=== PATIENT | male | born 1945 | race Caucasian/White ===

== ENCOUNTER 2022-04-21 10:19 | Inpatient (IN) | payer MEDICARE, OTHER ==
[~2022-04-21] VITALS: Ht 177.8 cm; Wt 72.7 kg
[2022-04-21] VITALS (10 sets, daily range): BP systolic 98–131; BP diastolic 53–64
[2022-04-21 10:40] LABS: BASOPHILS # (AUTO) 0.1 10^3/uL (0.0-0.1); BASOPHILS % (AUTO) 1 % (0-10); EOSINOPHILS # (AUTO) 0.3 10^3/uL (0.0-0.3); EOSINOPHILS % (AUTO) 2 % (0-10); LYMPHOCYTES # (AUTO) 2.1 10^3/uL (1.0-4.0); LYMPHOCYTES % (AUTO) 15 % (12-44); MEAN CORPUSCULAR HEMOGLOBIN 23 pg (25-34); MEAN CORPUSCULAR HGB CONC 30 g/dL (32-36); MEAN CORPUSCULAR VOLUME 75 fL (80-99); MEAN PLATELET VOLUME 9.1 fL (9.0-12.2); MONOCYTES % (AUTO) 7 % (0-12); NEUTROPHILS # (AUTO) 10.7 10^3/uL (1.8-7.8); NEUTROPHILS % (AUTO) 75 % (42-75); PLATELET COUNT 644 10^3/uL (130-400); WHITE BLOOD COUNT 14.3 10^3/uL (4.3-11.0)
[2022-04-21 10:43] LABS: HEMATOCRIT 16 % (40-54); HEMOGLOBIN 4.7 g/dL (13.3-17.7)
--- NOTE | 2022-04-21 10:54 | ED General ---
General Chief Complaint: Respiratory Problems Stated Complaint: HEMOGLOBIN LOW Source of Information: Patient History of Present Illness Date Seen by Provider: Apr 21, 2022 Time Seen by Provider: 10:29 Initial Comments 76-year-old male presenting with complaints of feeling short of breath and easily winded over the last few weeks. He had gone through urgent care yesterday and they had drawn blood, done EKG and chest x-ray. He reports that everything had looked fine yesterday however today when they got blood work back then they called him and said that his hemoglobin was down to 4.7 and he needed to go to the hospital for transfusion. He came here to the emergency department to have labs rechecked and see about getting blood. He was advised that we do not have blood products here for transfusion in a situation like this. He would need to have labs rechecked and if it is truly low at 4.7 then we would want to try and get him transferred to the hospital for transfusion. He is hemo dynamically stable alert and active. He states that he initially thought he had a fever or upper respiratory infection and that proceeded to go into several weeks of being short of breath. He denies any chest pain, abdominal pain, nausea, vomiting, blood in stools, blood in urine, dark tarry stool, coughing up any blood. He denies taking any blood thinners or prescription medicines. He states he has not really seen a doctor since he was a child. He has been healthy and denies any known medical issues. Timing/Duration: Getting Worse (Over the last few weeks becoming more short of breath, especially with exertion) Severity: Moderate Modifying Factors: worse with Movement (Exertion makes him feel more short of breath) Associated Systoms: No Chest Pain; Cough; No Diaphoresis, No Fever/Chills, No Headaches, No Loss of Appetite, No Malaise, No Nausea/Vomiting, No Rash, No Seizure; Shortness of Air; No Syncope, No Weakness Allergies and Home Medications Allergies Coded Allergies: latex (Verified Allergy, Unknown, 04/21/22) Patient Home Medication List Home Medication List Reviewed: Yes Review of Systems Review of Systems Constitutional: No chills, No fever, No malaise EENTM: no symptoms reported Respiratory: cough (intermittent), dyspnea on exertion, short of breath; No stridor, No wheezing Cardiovascular: No chest pain, No edema Gastrointestinal: No abdominal pain, No diarrhea, No hematemesis, No heartburn, No melena, No nausea, No vomiting Genitourinary: no symptoms reported Musculoskeletal: no symptoms reported Skin: No rash Psychiatric/Neurological: Denies Headache Hematologic/Lymphatic: Denies Blood Clots, Denies Easy Bleeding, Denies Easy Bruising Past Ncxozxy-Rcvtsv-Jgjrnz Hx Patient Social History Tobacco Use?: No Smoking Status: Never a Smoker Smokeless Tobacco Frequency: Never a User Use of E-Cig and/or Vaping dev: No Use of E-Cig and/or Vaping Nadir: Never a User Substance use?: No Alcohol Use?: No Pt feels they are or have been: No Immunizations Up To Date COVID19 Vaccine Head Lineman: MODERNA Physical Exam Vital Signs Vital Signs - First Documented 04/21/22 04/21/22 10:28 11:35 Temp 36.0 Pulse 104 Resp 17 B/P (MAP) 134/51 (78) Pulse Ox 100 O2 Delivery Room Air Capillary Refill : Height, Weight, BMI Height: '" Weight: lbs. oz. kg; BMI Method: General Appearance: No Apparent Distress, WD/WN HEENT: PERRL/EOMI, Pharynx Normal Neck: Full Range of Motion, Normal Inspection, Non Tender, Supple Respiratory: Chest Non Tender, Lungs Clear, Normal Breath Sounds, No Accessory Muscle Use, No Respiratory Distress Cardiovascular: Regular Rate, Rhythm, Normal Peripheral Pulses Gastrointestinal: Normal Bowel Sounds, No Pulsatile Mass, Non Tender Rectal: Normal Rectal Tone, Heme Negative Stool Extremity: Normal Capillary Refill, Normal Inspection, No Pedal Edema Neurologic/Psychiatric: Alert, Oriented x3, scrap burner II-XII Norm as Tested Skin: Warm/Dry, Pallor Focused Exam Lactate Level 04/21/22 10:40: Lactic Acid Level 1.84 Lactic Acid Level Laboratory Tests Test 04/21/22 10:40 Lactic Acid Level 1.84 MMOL/L (0.50-2.00) Progress/Results/Core Measures Suspected Sepsis SIRS Temperature: Pulse: Respiratory Rate: Laboratory Tests 04/21/22 10:36: White Blood Count 14.3H Blood Pressure / Mean: 04/21/22 10:40: Lactic Acid Level 1.84 Laboratory Tests 04/21/22 10:36: Creatinine 1.27, INR Comment 1.0, Platelet Count 644H, Total Bilirubin 0.3 Results/Orders Lab Results Laboratory Tests Test 04/21/22 10:36 04/21/22 10:40 Range/Units White Blood Count 14.3 H 4.3-11.0 10^3/uL Red Blood Count 2.07 L 4.30-5.52 10^6/uL Hemoglobin 4.7 *L 13.3-17.7 g/dL Hematocrit 16 *L 40-54 % Mean Corpuscular Volume 75 L 80-99 fL Mean Corpuscular Hemoglobin 23 L 25-34 pg Mean Corpuscular Hemoglobin Concent 30 L 32-36 g/dL Red Cell Distribution Width 16.5 H 10.0-14.5 % Platelet Count 644 H 130-400 10^3/uL Mean Platelet Volume 9.1 9.0-12.2 fL Immature Granulocyte % (Auto) 1 % Neutrophils (%) (Auto) 75 42-75 % Lymphocytes (%) (Auto) 15 12-44 % Monocytes (%) (Auto) 7 0-12 % Eosinophils (%) (Auto) 2 0-10 % Basophils (%) (Auto) 1 0-10 % Neutrophils # (Auto) 10.7 H 1.8-7.8 10^3/uL Lymphocytes # (Auto) 2.1 1.0-4.0 10^3/uL Monocytes # (Auto) 1.0 0.0-1.0 10^3/uL Eosinophils # (Auto) 0.3 0.0-0.3 10^3/uL Basophils # (Auto) 0.1 0.0-0.1 10^3/uL Immature Granulocyte # (Auto) 0.1 0.0-0.1 10^3/uL Neutrophils % (Manual) 86 % Lymphocytes % (Manual) 11 % Monocytes % (Manual) 2 % Eosinophils % (Manual) 1 % Platelet Estimate INCREASED Hypochromasia MODERATE Target Cells MODERATE Tear Drop Cells SLIGHT Elliptocytes SLIGHT Prothrombin Time 13.9 12.2-14.7 SEC INR Comment 1.0 0.8-1.4 Activated Partial Thromboplast Time 27 24-35 SEC Sodium Level 135 135-145 MMOL/L Potassium Level 4.2 3.6-5.0 MMOL/L Chloride Level 103 98-107 MMOL/L Carbon Dioxide Level 20 L 21-32 MMOL/L Anion Gap 12 5-14 MMOL/L Blood Urea Nitrogen 15 7-18 MG/DL Creatinine 1.27 0.60-1.30 MG/DL Estimat Glomerular Filtration Rate 58 BUN/Creatinine Ratio 12 Glucose Level 155 H 70-105 MG/DL Calcium Level 8.5 8.5-10.1 MG/DL Corrected Calcium 9.1 8.5-10.1 MG/DL Total Bilirubin 0.3 0.1-1.0 MG/DL Aspartate Amino Transf (AST/SGOT) 8 5-34 U/L Alanine Aminotransferase (ALT/SGPT) < 5 0-55 U/L Alkaline Phosphatase 97 40-136 U/L Total Protein 6.5 6.4-8.2 GM/DL Albumin 3.3 3.2-4.5 GM/DL Lactic Acid Level 1.84 0.50-2.00 MMOL/L My Orders Orders - SAM LÓPEZ MD Fecal Occult Bedside (04/21/22 10:28) Cbc With Automated Diff (04/21/22 10:28) Protime With Inr (04/21/22 10:28) Partial Thromboplastin Time (04/21/22 10:28) Manual Differential (04/21/22 10:36) Comprehensive Metabolic Panel (04/21/22 10:48) Ed Iv/Invasive Line Start (04/21/22 10:48) Blood Culture (04/21/22 10:54) Lactic Acid Analyzer (04/21/22 10:54) Ed Admission (Communication) (04/21/22 11:10) Vital Signs/I&O 04/21/22 04/21/22 04/21/22 10:28 10:28 11:35 Temp 36.0 36.2 Pulse 104 80 Resp 17 15 B/P (MAP) 134/51 (78) 131/61 Pulse Ox 100 O2 Delivery Room Air Room Air Room Air Capillary Refill : Progress Note #1: Progress Note Order recheck on labs to see if he truly is anemic and what the value is, in case the low Hgb was lab error. While I was still talking to the patient lab came back with his CBC showing Hgb 4.7. I advised him with his anemia we would want to transfer him to a hospital for transfusion. His hemoccult exam was negative for blood. Differential diagnosis postviral anemia, GI blood loss, cancer 1046 D/w Dr. Pritchett as patient is unassigned and does not have a PCP. She was willing to accept him as a patient and have him admitted but she did request that we see what his Chemistry shows for his BUN and T Bili to help evaluate if this might be a hemolytic anemia. If so she would want to check with Heme/Onc before taking him to [place]. If it looked ok and did not seem to be indicating Hemolytic anemia will observation admit him for transfusion and he would need additional work up as outpt for cause of his anemia. Also added blood cultures and lactic acid since his CBC shows elevated WBC count of 14.3. Progress Note #2: Time: 11:09 Progress Note Chemistry and Coags are stable without acute significant abnormality to account for his anemia. D/w Dr. Pritchett again and she accepted him for observation admit to have transfusion. She will place queued orders for admit. Departure Communication (Admissions) Time/Spoke to Admitting Phy: 11:09 d/w Dr. Pritchett for Hospitalist and she accepted pt for admit. Impression Primary Impression: Anemia Qualified Codes: D64.9 - Anemia, unspecified Additional Impression: Dyspnea on exertion Disposition: 30 STILL A PATIENT Condition: Stable Admissions Decision to Admit Reason: Admit from ER (General) Decision to Admit/Date: Apr 21, 2022 Time/Decision to Admit Time: 11:09 SAM LÓPEZ MD Apr 21, 2022 10:54
[2022-04-21 10:55] LABS: PROTHROMBIN TIME PATIENT 13.9 SEC (12.2-14.7)
[2022-04-21 11:05] LABS: CARBON DIOXIDE 20 MMOL/L (21-32); CHLORIDE 103 MMOL/L (98-107); POTASSIUM 4.2 MMOL/L (3.6-5.0); SODIUM 135 MMOL/L (135-145)
[2022-04-21 11:06] LABS: ALANINE AMINOTRANSFERASE < 5 U/L (0-55); ALBUMIN 3.3 GM/DL (3.2-4.5); ALKALINE PHOSPHATASE 97 U/L (40-136); BILIRUBIN,TOTAL 0.3 MG/DL (0.1-1.0); BUN/CREATININE RATIO 12; CALCIUM 8.5 MG/DL (8.5-10.1); CREATININE SERUM 1.27 MG/DL (0.60-1.30); GFR ESTIMATED 58; GLUCOSE 155 MG/DL (70-105); TOTAL PROTEIN 6.5 GM/DL (6.4-8.2)
[2022-04-21 11:20] LABS: EOSINOPHILS % (MANUAL) 1 %; HYPOCHROMASIA MODERATE; LYMPHOCYTES % (MANUAL) 11 %; MONOCYTES % (MANUAL) 2 %; NEUTROPHILS % (MANUAL) 86 %; PLATELET ESTIMATE INCREASED; TARGET CELLS MODERATE; TEAR DROP CELLS SLIGHT
[2022-04-21 11:21] LABS: ELLIPT/OVALOCYTES SLIGHT
--- NOTE | 2022-04-21 12:43 | History & Physical-Hospitalist ---
History of Present Illness HPI/Chief Complaint Patient is a 76-year-old male who presented to the emergency department due to dyspnea on exertion. He states that his symptoms started roughly 1 month ago when he thought that he had an upper respiratory tract infection. When they continued he decided to seek evaluation at an urgent care yesterday. They mona labs as an outpatient and called him today because his hemoglobin was 4.7 and advised him to seek care in the emergency department. He presented to the [facility] ER where hemoglobin was rechecked and remained 4.7. He denies any dark or black stools. 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 reports that he has lost 30lbs semi-intentionally in the past 2-3 months (patient thinks 6-8 months, both agree to maybe 4 months timeframe). Patient is conversationally dyspneic and family reports that is new recently and abnormal for him. Source: patient Exam Limitations: no limitations Date Seen 04/21/22 Time Seen by a Provider: 13:00 Attending Physician No,Local Physician PCP Admitting Physician: Alexandra Breen MD Attending Physician: Alexandra Breen MD Referring Physician Date of Admission Apr 21, 2022 at 12:24 Home Medications & Allergies Home Medications Reviewed patient Home Medication Reconciliation performed by pharmacy medication reconciliations renal dialysis technician and/or nursing. Patients Allergies have been reviewed. Allergies Allergies Coded Allergies latex (Verified Allergy, Unknown, 04/21/22) Past Knwnylm-Ugeqzl-Sngagk Hx Patient Social History Tobacco Use?: No Smoking Status: Former Smoker (quit at 59yo) Smokeless Tobacco Frequency: Never a User Use of E-Cig and/or Vaping dev: No Use of E-Cig and/or Vaping Nadir: Never a User Substance use?: No Alcohol Use?: No Pt feels they are or have been: No Current Status Advance Directives: No Communicates: Verbally Primary Language: Romanian Preferred Spoken Language: Romanian Is interpretation needed?: No Sensory deficits: Vision impairment Implanted or Applied Medical D: None Family Medical History Reviewed Nursing Family Hx No Pertinent Family Hx Review of Systems Constitutional: No chills, No fever; malaise, weight loss EENTM: no symptoms reported Respiratory: No cough; dyspnea on exertion; No hemoptysis, No orthopnea, No phlegm; short of breath Cardiovascular: No chest pain, No edema, No Hx of Intervention, No palpitations Gastrointestinal: No abdominal pain, No constipation, No diarrhea, No nausea, No vomiting Genitourinary: no symptoms reported Musculoskeletal: no symptoms reported Skin: no symptoms reported Psychiatric/Neurological: No Symptoms Reported Physical Exam Physical Exam Vital Signs Vital Signs - First Documented 04/21/22 04/21/22 04/21/22 10:28 11:35 20:00 Temp 36.0 Pulse 104 Resp 17 B/P (MAP) 134/51 (78) Pulse Ox 100 O2 Delivery Room Air O2 Flow Rate 98.00 Capillary Refill : Less Than 3 Seconds Height, Weight, BMI Height: '" Weight: lbs. oz. kg; 24.00 BMI Method: General Appearance: No Apparent Distress, WD/WN, Thin HEENT: PERRL/EOMI, Moist Mucous Membranes; No Scleral Icterus (L), No Scleral Icterus (R) Neck: Normal Inspection, Supple Respiratory: Lungs Clear, No Accessory Muscle Use, No Respiratory Distress Cardiovascular: Regular Rate, Rhythm, No JVD, No Murmur Gastrointestinal: Normal Bowel Sounds, Non Tender, Soft Extremity: No Calf Tenderness, Swelling (trace ankle edema bilaterally) Neurologic/Psychiatric: Alert, Oriented x3, Normal Mood/Affect Skin: Normal Color, Warm/Dry Results Results/Procedures Labs Laboratory Tests 04/21/22 10:36 04/21/22 21:25 04/22/22 05:41 Patient resulted labs reviewed. Assessment/Plan Admission Diagnosis Severe Anemia Admission Status: Observation Assessment and Plan Severe Anemia Weight loss Former tobacco abuse Presumed GI bleed No evidence of hemolysis on labs Surgery consulted, appreciate recs Discussed with Dr Murray will likely need EGD and colonoscopy FOBT negative Check iron panel PPI Down 30 lbs in roughly 4 months- informed family this is concerning for occult neoplasm DVT ppx: SCDs only Diagnosis/Problems Diagnosis/Problems (1) Dyspnea on exertion Status: Acute (2) Anemia Status: Acute Qualifiers: Anemia type: unspecified type Qualified Codes: D64.9 - Anemia, unspecified ALEXANDRA BREEN MD Apr 21, 2022 12:43
[2022-04-21] MEDS ORDERED: ACETAMINOPHEN 325 MG TABLET PO PRN (13:00)
[2022-04-21] MEDS ORDERED: ONDANSETRON 4 MG/2 ML (SDV) Z0FRAN IV PRN (13:00)
[2022-04-21] MEDS ORDERED: diphenhydrAMINE 50 MG/ML INJ (BENADRYL) IVP PRN (13:00)
[2022-04-21] MEDS ORDERED: ANTACID SUSP 30 ML UDC (MYLANTA) PO PRN (13:00)
[2022-04-21] MEDS ORDERED: MELATONIN 3 MG TABLET PO PRN (13:00)
[2022-04-21] MEDS ORDERED: NS IV 500 ML 500 ML IV SCH ×3 (13:00→22:15)
[2022-04-21] MEDS: NS IV 1000 ML 1,000 ML IV SCH ×2 (13:08→20:28)
[2022-04-21] MEDS ORDERED: RT-ALBUTEROL/IPRATROPIUM 3 ML (DUONEB) VIAL INH PRN (13:30)
[2022-04-21] MEDS: inSUlin ASPART (NovoLOG) 1 UNIT/0.01 ML (CHARGE PER UNIT) SC SCH ×2 (15:44→20:28)
--- NOTE | 2022-04-21 16:05 | CONSULTATION REPORT ---
DATE OF SERVICE: HISTORY OF PRESENT ILLNESS: The patient is a 76-year-old male, who presented to the Emergency Department with increasing shortness of breath; however, also at rest. In the ER, his blood was drawn as well as an EKG and chest x-ray. Blood work did reveal a 4.7. The patient is awake and alert most likely indicating a chronic process compensation. He states he has not seen a physician in many years. He does not report any nausea or vomiting as well as no coffee ground emesis nor any dark urine. He also does not report any hematuria. He states that his bowel movements have been normal for him. He does not report any red blood per rectum nor any dark tarry stools. Upon further questioning, he does report that he may have some loose stools on occasion. PAST MEDICAL HISTORY: none known. PAST SURGICAL HISTORY: None known. ALLERGIES: LATEX. SOCIAL HISTORY: Negative smoke. REVIEW OF SYSTEMS: Denies experiencing any shortness of breath or difficulty breathing. No diaphoresis. He states that he does have exertional shortness of breath with mild episodes of symptoms. No hematemesis. He also does report occasional episodes of constipation, no red blood per rectum, no dark tarry stools. No fever, chills, no recent inadvertent weight loss. Rest of the review of systems negative. PHYSICAL EXAMINATION: VITAL SIGNS: Temperature 98.7, pulse 79, respirations 16, and pulse ox 100% on room air. Physical exam will be ascertained when the patient will be seen in the a.m. The patients history was accrued by the admitting physician and the patients electronic medical records. LABORATORY DATA: Hemoglobin 4.7, hematocrit 14, platelets 644, BUN 15, and creatinine 1.27. Liver function enzymes are normal. ASSESSMENT AND PLAN: A 76-year-old male with severe anemia. Somewhere along the line, he does have a slow chronic blood loss, which again may encompass the upper or lower gastrointestinal tract and because he has not had a colonoscopy as well as the significant anemia, we will schedule him for an EGD and colonoscopy on this admission. We will allow him to eat and proceed with PPI acid reduction and continue with resuscitation with blood products, as well as monitor his stability and vital signs. Job ID: [id number] DocumentID: [id number] Dictated Date: 04/21/2022 15:15:20 Test Design Engineer Date: 04/21/2022 15:52:15 Dictated By: ADELA ESQUIVEL MD MTDD
[2022-04-21] MEDS: RT-ALBUTEROL/IPRATROPIUM 3 ML (DUONEB) VIAL INH SCH (20:35)
[2022-04-21] MEDS: PANTOPRAZOLE 40 MG (PROTONIX) VIAL IV SCH (21:08)
[2022-04-21 21:37] LABS: HEMOGLOBIN 6.3 g/dL (13.3-17.7)
[2022-04-22] VITALS (7 sets, daily range): BP systolic 88–115; BP diastolic 53–63
[2022-04-22] MEDS: NS IV 1000 ML 1,000 ML IV SCH ×3 (05:00→20:45)
[2022-04-22 05:47] LABS: HEMATOCRIT 23 % (40-54); HEMOGLOBIN 7.3 g/dL (13.3-17.7); MEAN CORPUSCULAR HEMOGLOBIN 25 pg (25-34); MEAN CORPUSCULAR HGB CONC 32 g/dL (32-36); MEAN CORPUSCULAR VOLUME 80 fL (80-99); MEAN PLATELET VOLUME 9.3 fL (9.0-12.2); PLATELET COUNT 455 10^3/uL (130-400); WHITE BLOOD COUNT 12.8 10^3/uL (4.3-11.0)
[2022-04-22 06:07] LABS: CALCIUM 7.8 MG/DL (8.5-10.1); CREATININE SERUM 1.07 MG/DL (0.60-1.30); POTASSIUM 4.4 MMOL/L (3.6-5.0)
[2022-04-22] MEDS: inSUlin ASPART (NovoLOG) 1 UNIT/0.01 ML (CHARGE PER UNIT) SC SCH ×4 (06:38→20:39)
[2022-04-22] MEDS: RT-ALBUTEROL/IPRATROPIUM 3 ML (DUONEB) VIAL INH SCH ×2 (07:41→21:30)
--- NOTE | 2022-04-22 09:40 | Progress Note ---
Standard Progress Note Progress Notes/Assess & Plan Date Seen by a Provider: Apr 22, 2022 Time Seen by a Provider: 09:30 Progress/Assessment & Plan PE: chest-few scattered rhales heart-regular HEENT-no scleral icterus, no cervical adenopathy ext-no LE edema, neg homans abd-soft, NT/ND skin-warm,dry Focused Exam Lactate Level 04/21/22 10:40: Lactic Acid Level 1.84 ADELA ESQUIVEL MD Apr 22, 2022 09:40
--- NOTE | 2022-04-22 09:40 | Progress Note ---
Subjective Date Seen by a Provider: Apr 22, 2022 Time Seen by a Provider: 09:20 Subjective/Events-last exam Patient seen with Dr. Murray. Patient reports feeling better today. Denies any N/V or abdominal pain. Reports that he had been having increased heartburn at home but denies any here. Reports that he has never had an EGD or colonoscopy before. Denies any blood in his stool or dark, tarry stools. Focused Exam Lactate Level 04/21/22 10:40: Lactic Acid Level 1.84 Objective Exam Vital Signs Date Time Temp Pulse Resp B/P (MAP) Pulse Ox O2 Delivery O2 Flow Rate FiO2 04/22/22 07:41 96 Room Air 0.00 04/22/22 07:25 37.5 78 20 115/58 (77) 98 Room Air 04/22/22 07:00 70 04/22/22 04:34 37.7 69 18 106/61 (76) 99 Room Air 04/22/22 02:35 37.1 71 16 109/59 97 Room Air 04/22/22 00:39 70 04/22/22 00:05 37.4 76 18 98/54 (69) 98 Room Air 04/21/22 23:47 37.4 78 15 98/54 98 Room Air 04/21/22 20:36 95 Room Air 04/21/22 20:00 Room Air 98.00 04/21/22 19:47 37.4 84 18 127/60 (82) 100 Room Air 04/21/22 19:32 37.4 84 18 127/60 100 Room Air 04/21/22 19:00 75 04/21/22 16:47 37.8 75 16 111/57 99 Room Air 04/21/22 16:43 36.7 78 20 103/64 (77) 98 Room Air 04/21/22 16:25 37.8 75 16 111/57 99 Room Air 04/21/22 14:32 37.6 79 16 111/53 100 Room Air 04/21/22 14:17 37.2 85 16 117/55 100 Room Air 04/21/22 14:00 37.3 80 20 118/61 (80) 100 Room Air 04/21/22 13:13 36.2 80 100 04/21/22 13:00 Room Air 04/21/22 11:35 36.2 80 15 131/61 100 Room Air 04/21/22 10:28 36.0 104 17 134/51 (78) Room Air 04/21/22 10:28 Room Air I & O 04/22/22 07:00 Intake Total 1166 ml Balance 1166 ml Capillary Refill : Less Than 3 Seconds General Appearance: No Apparent Distress, WD/WN Neck: Normal Inspection, Supple Respiratory: No Accessory Muscle Use, No Respiratory Distress Gastrointestinal: normal bowel sounds, non tender, soft Extremity: Normal Inspection, Normal Range of Motion Neurologic/Psychiatric: Alert, Oriented x3 Skin: Normal Color, Warm/Dry Results Lab Laboratory Tests 04/21/22 10:36: White Blood Count 14.3H, Red Blood Count 2.07L, Hemoglobin 4.7*L, Hematocrit 16*L, Mean Corpuscular Volume 75L, Mean Corpuscular Hemoglobin 23L, Mean Corpuscular Hemoglobin Concent 30L, Red Cell Distribution Width 16.5H, Platelet Count 644H, Mean Platelet Volume 9.1, Immature Granulocyte % (Auto) 1, Neutrophils (%) (Auto) 75, Lymphocytes (%) (Auto) 15, Monocytes (%) (Auto) 7, Eosinophils (%) (Auto) 2, Basophils (%) (Auto) 1, Neutrophils # (Auto) 10.7H, Lymphocytes # (Auto) 2.1, Monocytes # (Auto) 1.0, Eosinophils # (Auto) 0.3, Basophils # (Auto) 0.1, Immature Granulocyte # (Auto) 0.1, Neutrophils % (Manual) 86, Lymphocytes % (Manual) 11, Monocytes % (Manual) 2, Eosinophils % (Manual) 1, Platelet Estimate INCREASED, Hypochromasia MODERATE, Target Cells MODERATE, Tear Drop Cells SLIGHT, Elliptocytes SLIGHT, Prothrombin Time 13.9, INR Comment 1.0, Activated Partial Thromboplast Time 27, Sodium Level 135, Potassium Level 4.2, Chloride Level 103, Carbon Dioxide Level 20L, Anion Gap 12, Blood Urea Nitrogen 15, Creatinine 1.27, Estimat Glomerular Filtration Rate 58, BUN/Creatinine Ratio 12, Glucose Level 155H, Calcium Level 8.5, Corrected Calcium 9.1, Total Bilirubin 0.3, Aspartate Amino Transf (AST/SGOT) 8, Alanine Aminotransferase (ALT/SGPT) < 5, Alkaline Phosphatase 97, Total Protein 6.5, Albumin 3.3 10/8/22 10:40: Lactic Acid Level 1.84 04/21/22 13:08: Iron Level 13L, Total Iron Binding Capacity 335H, Unsaturated Iron Binding Capacity 322, Transferrin % Saturation 4L, Ferritin 11.0L 04/21/22 15:37: Glucometer 99 04/21/22 20:24: Glucometer 115H 04/21/22 21:25: Hemoglobin 6.3#*L, Hematocrit 20*L 04/22/22 05:35: Glucometer 94 04/22/22 05:41: Hemoglobin 7.3L, Hematocrit 23L, White Blood Count 12.8H, Red Blood Count 2.91L, Mean Corpuscular Volume 80, Mean Corpuscular Hemoglobin 25, Mean Corpuscular Hemoglobin Concent 32, Red Cell Distribution Width 17.1H, Platelet Count 455H, Mean Platelet Volume 9.3, Sodium Level 136, Potassium Level 4.4, Chloride Level 110H, Carbon Dioxide Level 17L, Anion Gap 9, Blood Urea Nitrogen 11, Creatinine 1.07, Estimat Glomerular Filtration Rate 71, BUN/Creatinine Ratio 10, Glucose Level 98, Calcium Level 7.8L Assessment/Plan Assessment/Plan Assess & Plan/Chief Complaint A 76 year old male with severe anemia VSS WBC 12.8 Hgb 7.3 Continue with PUD prophylaxis Transfuse PRBCs per protocol Will proceed with colonic prep tomorrow Schedule for EGD and colonoscopy for Saturday MABEL ESTRADA APRN Apr 22, 2022 09:40
[2022-04-22] MEDS: PANTOPRAZOLE 40 MG (PROTONIX) VIAL IV SCH ×2 (09:43→20:45)
--- NOTE | 2022-04-22 11:22 | Progress Note - Hospitalist ---
Subjective HPI/CC On Admission Date Seen by Provider: Apr 22, 2022 Patient is a 76-year-old male who presented to the emergency department due to dyspnea on exertion. He states that his symptoms started roughly 1 month ago when he thought that he had an upper respiratory tract infection. When they continued he decided to seek evaluation at an urgent care yesterday. They mona labs as an outpatient and called him today because his hemoglobin was 4.7 and advised him to seek care in the emergency department. He presented to the [place] ER where hemoglobin was rechecked and remained 4.7. He denies any dark or black stools. He has not seen a doctor since he was a child. reports that he has lost 30lbs semi-intentionally in the past 2-3 months (patient thinks 6-8 months, both agree to maybe 4 months timeframe). Patient is conversationally dyspneic and family reports that is new recently and abnormal for him. Subjective/Events-last exam Pt reports feeling much better today. No complaints. Breathing improved. Discussed lab results and need for iron transfusion. Focused Exam Lactate Level 04/21/22 10:40: Lactic Acid Level 1.84 Objective Exam Vital Signs Vital Signs Date Time Temp Pulse Resp B/P (MAP) Pulse Ox O2 Delivery O2 Flow Rate FiO2 04/22/22 08:00 Room Air 04/22/22 07:41 96 0.00 04/22/22 07:25 37.5 78 20 115/58 (77) Capillary Refill : Less Than 3 Seconds General Appearance: No Apparent Distress, WD/WN Respiratory: Lungs Clear, No Respiratory Distress Cardiovascular: Regular Rate, Rhythm, No Murmur Gastrointestinal: Normal Bowel Sounds, Non Tender, Soft Neurologic/Psychiatric: Alert, Oriented x3 Skin: Normal Color, Warm/Dry Results/Procedures Lab Laboratory Tests 04/21/22 21:25 04/22/22 05:41 Patient resulted labs reviewed. Assessment/Plan Assessment and Plan Assess & Plan/Chief Complaint Severe Anemia Weight loss Former tobacco abuse Presumed GI bleed Hgb up frfom 4.7 to 7.3 after 3 units pRBCs Surgery consulted, appreciate recs Discussed with Dr Murray will likely need EGD and colonoscopy FOBT negative Iron low- will replace with venofer PPI Down 30 lbs in roughly 4 months- informed family this is concerning for occult neoplasm DVT ppx: SCDs only Diagnosis/Problems Diagnosis/Problems (1) Dyspnea on exertion Status: Acute (2) Anemia Status: Acute Qualifiers: Anemia type: unspecified type Qualified Codes: D64.9 - Anemia, unspecified DIANNE BREEN MD Apr 22, 2022 11:22
[2022-04-22] MEDS ORDERED: EPINEPHrine INJECTION 1 MG/ML AMP IM PRN (11:30)
[2022-04-22] MEDS ORDERED: diphenhydrAMINE 50 MG/ML INJ (BENADRYL) IV PRN (11:30)
[2022-04-22] MEDS ORDERED: RT-ALBUTEROL SULF 2.5 MG/3 ML PRE-MIX VIAL IH PRN (11:30)
[2022-04-22] MEDS ORDERED: HYDROCORTISONE 100 MG/2 ML (Solu-CORTEF) VIAL IV PRN (11:30)
[2022-04-23 00:06] VITALS: BP 106/55
[2022-04-23 04:55] VITALS: BP 113/56
[2022-04-23] MEDS: NS IV 1000 ML 1,000 ML IV SCH (05:16)
[2022-04-23 05:28] LABS: HEMATOCRIT 23 % (40-54); HEMOGLOBIN 7.1 g/dL (13.3-17.7); MEAN CORPUSCULAR HEMOGLOBIN 25 pg (25-34); MEAN CORPUSCULAR HGB CONC 31 g/dL (32-36); MEAN CORPUSCULAR VOLUME 81 fL (80-99); MEAN PLATELET VOLUME 9.4 fL (9.0-12.2); PLATELET COUNT 430 10^3/uL (130-400); WHITE BLOOD COUNT 13.6 10^3/uL (4.3-11.0)
[2022-04-23 05:47] LABS: CALCIUM 7.4 MG/DL (8.5-10.1); CREATININE SERUM 0.99 MG/DL (0.60-1.30); POTASSIUM 4.2 MMOL/L (3.6-5.0)
[2022-04-23] MEDS: inSUlin ASPART (NovoLOG) 1 UNIT/0.01 ML (CHARGE PER UNIT) SC SCH ×4 (05:52→20:18)
[2022-04-23 08:06] VITALS: BP 101/53
[2022-04-23] MEDS: PANTOPRAZOLE 40 MG (PROTONIX) VIAL IV SCH ×2 (08:25→20:18)
[2022-04-23] MEDS: MILK OF MAGNESIA 400 MG/5 ML 30 ML UDC PO SCH ×5 (08:25→23:52)
[2022-04-23] MEDS ORDERED: CETI10TA17 PO (09:02)
[2022-04-23] MEDS ORDERED: FAMO20TA5 PO (09:02)
[2022-04-23] MEDS: RT-ALBUTEROL/IPRATROPIUM 3 ML (DUONEB) VIAL INH SCH ×2 (09:40→22:21)
--- NOTE | 2022-04-23 10:01 | Physical Therapy Progress Note ---
Therapy Progress Note Patient declined PT stating he is up independently in room and in hallway. No skilled PT indicated. 1 visit DIANELYS LEI PT Apr 23, 2022 10:01
[2022-04-23 11:18] VITALS: BP 94/55
[2022-04-23 16:04] VITALS: BP 97/52
--- NOTE | 2022-04-23 17:08 | Progress Note - Hospitalist ---
Subjective HPI/CC On Admission Date Seen by Provider: Apr 23, 2022 Time Seen by Provider: 10:45 Patient is a 76-year-old male who presented to the emergency department due to dyspnea on exertion. He states that his symptoms started roughly 1 month ago when he thought that he had an upper respiratory tract infection. When they continued he decided to seek evaluation at an urgent care yesterday. They mona labs as an outpatient and called him today because his hemoglobin was 4.7 and advised him to seek care in the emergency department. He presented to the [facility] where hemoglobin was rechecked and remained 4.7. He denies any dark or black stools. He has not seen a doctor since he was a child. reports that he has lost 30lbs semi-intentionally in the past 2-3 months (patient thinks 6-8 months, both agree to maybe 4 months timeframe). Patient is conversationally dyspneic and family reports that is new recently and abnormal for him. Subjective/Events-last exam He is sitting in bed. He is feeling better. He has no complaints. He has not seen any blood in his stools. Focused Exam Lactate Level 04/21/22 10:40: Lactic Acid Level 1.84 Objective Exam Vital Signs Vital Signs Date Time Temp Pulse Resp B/P (MAP) Pulse Ox O2 Delivery O2 Flow Rate FiO2 04/23/22 16:26 38.5 04/23/22 16:04 74 20 97/52 (67) 95 Room Air 04/22/22 21:30 0.00 Capillary Refill : Less Than 3 Seconds General Appearance: No Apparent Distress, WD/WN Respiratory: Lungs Clear, No Respiratory Distress Cardiovascular: Regular Rate, Rhythm, No Murmur Gastrointestinal: Normal Bowel Sounds, Soft Extremity: Normal Inspection, No Pedal Edema Neurologic/Psychiatric: Alert, Normal Mood/Affect Skin: Normal Color, Warm/Dry Results/Procedures Lab Laboratory Tests 04/23/22 05:12 Patient resulted labs reviewed. Assessment/Plan Assessment and Plan Assess & Plan/Chief Complaint Severe Anemia Iron deficiency anemia Weight loss Former tobacco abuse Presumed GI bleed Hgb improved s/p 3 units PRBC Surgery following Planning for scopes tomorrow FOBT negative s/p Venofer PPI Stop IV fluids DVT ppx: SCDs only Diagnosis/Problems Diagnosis/Problems (1) KASHIF (iron deficiency anemia) Status: Acute Qualifiers: Iron deficiency anemia type: chronic blood loss Qualified Codes: D50.0 - Iron deficiency anemia secondary to blood loss (chronic) (2) Profound anemia Status: Acute Qualifiers: Anemia type: iron deficiency Iron deficiency anemia type: chronic blood loss Qualified Codes: D50.0 - Iron deficiency anemia secondary to blood loss (chronic) (3) Weight loss Status: Acute (4) Former tobacco use Status: Acute ENID VELEZ MD Apr 23, 2022 17:08
--- NOTE | 2022-04-23 17:34 | Progress Note ---
Subjective Date Seen by a Provider: Apr 23, 2022 Time Seen by a Provider: 17:00 Subjective/Events-last exam doing well. no abd pain. Hb stable. tolerating colonic prep. Focused Exam Lactate Level 04/21/22 10:40: Lactic Acid Level 1.84 Objective Exam Vital Signs Date Time Temp Pulse Resp B/P (MAP) Pulse Ox O2 Delivery O2 Flow Rate FiO2 04/23/22 16:26 38.5 04/23/22 16:04 38.5 74 20 97/52 (67) 95 Room Air 04/23/22 12:52 73 04/23/22 11:18 37.4 72 18 94/55 (68) 95 Room Air 04/23/22 09:41 94 Room Air 04/23/22 08:06 37.4 74 18 101/53 (69) 95 Room Air 04/23/22 08:00 95 Room Air 04/23/22 07:01 79 04/23/22 04:55 37.6 72 18 113/56 (75) 95 Room Air 04/23/22 01:00 81 04/23/22 00:06 37.6 74 18 106/55 (72) 91 Room Air 04/22/22 21:30 97 Room Air 0.00 04/22/22 20:45 Room Air 95.00 04/22/22 19:53 37.0 75 20 88/53 (65) 95 Room Air 04/22/22 19:00 77 I & O 04/23/22 07:00 Intake Total 4160 ml Balance 4160 ml Capillary Refill : Less Than 3 Seconds General Appearance: No Apparent Distress HEENT: PERRL/EOMI Neck: Full Range of Motion Respiratory: Chest Non Tender, Lungs Clear Cardiovascular: Regular Rate, Rhythm Gastrointestinal: normal bowel sounds, non tender, soft Extremity: Normal Capillary Refill Neurologic/Psychiatric: Alert, Oriented x3 Skin: Normal Color Lymphatic: No Adenopathy Results Lab Laboratory Tests 04/22/22 20:27: Glucometer 116H 04/23/22 05:12: White Blood Count 13.6H, Red Blood Count 2.86L, Hemoglobin 7.1L, Hematocrit 23L, Mean Corpuscular Volume 81, Mean Corpuscular Hemoglobin 25, Mean Corpuscular Hemoglobin Concent 31L, Red Cell Distribution Width 18.0H, Platelet Count 430H, Mean Platelet Volume 9.4, Sodium Level 136, Potassium Level 4.2, Chloride Level 111H, Carbon Dioxide Level 16L, Anion Gap 9, Blood Urea Nitrogen 10, Creatinine 0.99, Estimat Glomerular Filtration Rate 78, BUN/Creatinine Ratio 10, Glucose Level 95, Calcium Level 7.4L 04/23/22 11:16: Glucometer 82 04/23/22 12:59: Lab Scanned Report Transfusion Reaction Form 04/23/22 16:06: Glucometer 92 Microbiology 04/22/22 MRSA Screen - Final, Complete MRSA not isolated 04/21/22 Blood Culture - Preliminary, Resulted No growth Assessment/Plan Assessment/Plan Assess & Plan/Chief Complaint anemia with hx of GERD and abscence from colonoscopy. scheduled for EGD and Colonoscopy tomorrow at 12pm. if no active bleed will d/c home after that. ADELA ESQUIVEL MD Apr 23, 2022 17:34
--- NOTE | 2022-04-23 17:35 | Progress Note-Pre Operative ---
Pre-Operative Progress Note Date of Available H&P: Apr 23, 2022 Date H&P Reviewed: Apr 23, 2022 Time H&P Reviewed: 17:00 History & Physical: No changes noted Pre-Operative Diagnosis: severe anemia with GERD and absence from colonoscopy ADELA ESQUIVEL MD Apr 23, 2022 17:35
[2022-04-23 20:05] VITALS: BP 98/54
[2022-04-24] VITALS (7 sets, daily range): BP systolic 88–110; BP diastolic 51–62
[2022-04-24] MEDS: MILK OF MAGNESIA 400 MG/5 ML 30 ML UDC PO SCH ×3 (04:22→11:46)
[2022-04-24] MEDS: inSUlin ASPART (NovoLOG) 1 UNIT/0.01 ML (CHARGE PER UNIT) SC SCH ×2 (05:25→11:21)
[2022-04-24 06:09] LABS: HEMATOCRIT 26 % (40-54); MEAN CORPUSCULAR HEMOGLOBIN 25 pg (25-34); MEAN CORPUSCULAR HGB CONC 31 g/dL (32-36); MEAN CORPUSCULAR VOLUME 82 fL (80-99); MEAN PLATELET VOLUME 9.8 fL (9.0-12.2); PLATELET COUNT 466 10^3/uL (130-400)
[2022-04-24 06:30] LABS: CALCIUM 7.9 MG/DL (8.5-10.1); CREATININE SERUM 0.96 MG/DL (0.60-1.30); POTASSIUM 4.1 MMOL/L (3.6-5.0)
[2022-04-24] MEDS: RT-ALBUTEROL/IPRATROPIUM 3 ML (DUONEB) VIAL INH SCH (07:44)
[2022-04-24] MEDS: PANTOPRAZOLE 40 MG (PROTONIX) VIAL IV SCH (08:11)
[2022-04-24] MEDS ORDERED: IRON SUCROSE 200 MG/10 ML (VENOFER) VIAL IV SCH (09:00)
[2022-04-24] MEDS ORDERED: LACTATED RINGERS 1,000 ML IV STA (12:28)
[2022-04-24] MEDS ORDERED: LIDOCAINE JELLY 2% 6 ML SYRINGE MM PRN (12:30)
[2022-04-24] MEDS ORDERED: LACTATED RINGERS 1,000 ML IV ONE (12:30)
[2022-04-24] MEDS ORDERED: HURRICAINE EXT TUBE (BENZOCAINE) XX PRN (12:30)
[2022-04-24] MEDS ORDERED: LIDOCAINE JELLY 2% 6 ML SYRINGE ONE (12:43)
[2022-04-24] MEDS ORDERED: PROPOFOL INJECTION 50 ML IV ONE (12:45)
--- NOTE | 2022-04-24 14:15 | Progress Note-Post Operative ---
Post-Operative Progess Note Surgeon (s)/Kitchen Hand (s) Surgeon ADELA ESQUIVEL MD Kitchen Hand: none Pre-Operative Diagnosis severe anemia with GERD and absence from colonoscopy Post-Operative Diagnosis distal esophageal mass, HH(2.5cm), mild gastritis. mild chronic stage 2 ext and int hemorrhoids, small sigmoid polyp, moderate sigmoid diverticulosis. Procedure & Operative Findings Date of Procedure 04/24/22 Procedure Performed/Findings EGD with bx. Colonoscopy with bx. Anesthesia Type mac Estimated Blood Loss Estimated blood loss (mL): minimal Specimens/Packing Specimens Removed esophageal mass, antrum, sigmoid polyp ADELA ESQUIVEL MD Apr 24, 2022 14:15
--- NOTE | 2022-04-24 14:18 | Anesthesia-General Post-Op ---
MAC Patient Condition Mental Status/LOC: Same as Preop Cardiovascular: Satisfactory Nausea/Vomiting: Absent Respiratory: Satisfactory Pain: Controlled Complications: Absent Post Op Complications Complications None Follow Up Care/Instructions Patient Instructions None needed. Anesthesiology Discharge Order Discharge Order Patient is doing well, no complaints, stable vital signs, no apparent adverse anesthesia problems. No complications reported per nursing. MADISON BAKER CRNA Apr 24, 2022 14:18
[2022-04-24] MEDS ORDERED: FERR325T18 PO (14:33)
[2022-04-24] MEDS ORDERED: PANT40TA52 PO (14:33)
--- NOTE | 2022-04-24 18:55 | OPERATIVE REPORT ---
DATE OF SERVICE: ATTENDING PRIMARY CARE PHYSICIAN: Dr. Alexandra Pritchett. PREOPERATIVE DIAGNOSES: Severe anemia, gastroesophageal reflux disease, and absence from colonoscopy. POSTOPERATIVE DIAGNOSES: Esophageal mass concerning for malignancy, ulceration within the mass with overlying clot, no active bleeding, hiatal hernia, mild gastritis, chronic stage II external and internal hemorrhoids, small polyp of the sigmoid colon, 3 mm in size, and moderate sigmoid diverticulosis. PROCEDURES PERFORMED: EGD with biopsy and colonoscopy with biopsy. SURGEON: Adela Esquivel MD. ANESTHESIA: Monitored anesthesia care. ESTIMATED BLOOD LOSS: Minimal. FINDINGS: Esophageal mass concerning for malignancy, ulceration within the mass with overlying clot, no active bleeding, hiatal hernia, mild gastritis, chronic stage II external and internal hemorrhoids, small polyp of the sigmoid colon, 3 mm in size, and moderate sigmoid diverticulosis. DISPOSITION: The patient tolerated the procedure well. INDICATIONS FOR PROCEDURE: The patient is a 76-year-old male, who states that he does not have a primary care physician and has not seen a physician in many years. He reports that he has had some issues with gastroesophageal reflux disease, which has worsened over time. He does not report any hematemesis, no coffee ground emesis as well as no episodes of red blood per rectum nor any dark tarry stools. He felt he developed significant exertional shortness of breath and weakness and was seen in the Emergency Department at [facility] and found a hemoglobin of 4.7 and the patient was transferred to [facility]. Since being admitted, he has been resuscitated with packed red blood cells and his hemoglobin has gone up appropriately. DESCRIPTION OF PROCEDURE: The patient was brought to the endoscopy suite and laid in the left lateral decubitus position. After adequate IV pain and sedative medications and monitored anesthesia care, the mouthpiece was applied. The endoscope was placed in the mouth, visualizing the pharynx and hypopharyngeal region. Vocal cords, epiglottis and vallecula identified and appeared to be normal. The endoscope was then gently intubated at the esophageal opening and esophagus insufflated. The endoscope was then advanced to the first, second and third portion of the esophagus. There was a significant size mass encompassing the lower third of the esophagus, which was not obstructing. This was exophytic and appeared to be a neoplastic process. Multiple biopsies were taken of the lesion with forceps with visualization of good hemostasis. The endoscope was then advanced in the stomach and endoscope retroflexed, visualizing the mass to becoming exophytic within the stomach as well. The esophageal opening was larger. There was no obstruction and it appears that he does have a hiatal hernia as well. Biopsies were taken of the retroflexed position as well with visualization of good hemostasis. There was a mild gastritis. No biopsies were taken of the antrum to rule out H. pylori. The endoscope was then advanced to the pylorus and the first and second portion of the duodenum, which appeared normal. The endoscope was then slowly withdrawn while taking a second look and suctioning of residual air with no additional findings. A digital rectal examination was performed, which revealed chronic stage II external and internal hemorrhoids. Normal suture tone was felt and there were no palpable masses. Prostate gland was palpable and appeared normal. The endoscope was then intubated to the anus and rectum gently insufflated. The endoscope was then advanced through the valves of [place] of the rectum with no polyps or any neoplasms identified. We then proceeded through the sigmoid colon, where a small polyp approximately 3 mm in size was identified. This was biopsied and destroyed with forceps with visualization of good hemostasis. Through the sigmoid, a moderate sigmoid diverticulosis was identified. The endoscope was then advanced to the remainder of the descending, transverse and ascending colon to the cecum. These segments were normal. No other lesions identified. No active bleeding sources. The endoscope was then slowly withdrawn while taking a second look and suctioning of residual air with no additional findings. The patient tolerated the procedure well. We will await the biopsy results; however, we feel that this is likely some form of esophageal cancer that is advanced and he will need further workup and he will need chemoradiation. We will also recommend a high-fiber diet with at least 30 grams of fiber daily to promote soft stools on a daily basis from a fiber supplement to make his stools consistently soft on a regular basis. Job ID: [id number] DocumentID: [id number] Dictated Date: 04/24/2022 13:47:22 Customer Engagement Specialist Date: 04/24/2022 18:54:55 Dictated By: ADELA ESQUIVEL MD
== END 2022-04-24 15:38 | disposition home or self-care (01) | DRG 812 ==
LOC: ER FS 10:23 → UNDOADMOB 12:24 → 4TH 12:24 → INTOOBSV 04-22 15:40 → OBSVTOIN 04-22 15:40 → UNDODISIN 04-24 15:38
PROVIDERS: ADMIT Family Medicine; ATTEND Internal Medicine
PROC: 0DBN8ZX Excision of Sigmoid Colon, Via Natural or Artificial Opening Endoscopic, Diagnostic (ICD-10-PCS; 2022-04-24)
PROC: 0DB38ZX Excision of Lower Esophagus, Via Natural or Artificial Opening Endoscopic, Diagnostic (ICD-10-PCS; principal; 2022-04-24 13:00)
PROC: 0DB68ZX Excision of Stomach, Via Natural or Artificial Opening Endoscopic, Diagnostic (ICD-10-PCS; 2022-04-24 13:00)
DX: D50.0 Iron deficiency anemia secondary to blood loss (chronic) (principal); K22.9 Disease of esophagus, unspecified; K44.9 Diaphragmatic hernia without obstruction or gangrene; K29.70 Gastritis, unspecified, without bleeding; K64.1 Second degree hemorrhoids; K63.5 Polyp of colon; K57.30 Diverticulosis of large intestine without perforation or abscess without bleeding; K21.9 Gastro-esophageal reflux disease without esophagitis; H54.7 Unspecified visual loss; Z87.891 Personal history of nicotine dependence; R63.4 Abnormal weight loss; Z68.23 Body mass index [BMI] 23.0-23.9, adult
CPT/HCPCS: 36415; 36430; 80048; 80053; 82274; 82728; 82947; 83540; 83550; 83605; 85007; 85014; 85018; 85027; 85610; 85730; 86850; 86900; 86901; 86920; 87040; 87081; 88305; 94640; 94760; G0378

== ENCOUNTER 2023-01-13 13:03 | Emergency (ER) | payer MEDICARE ==
[~2023-01-13] VITALS: Ht 175 cm; Wt 63.0 kg
[~2023-01-13 13:03] MED LIST: CETI10TA17 PO; FAMO20TA5 PO; FERR325T18 PO; PANT40TA52 PO
--- NOTE | 2023-01-13 13:16 | ED Integumentary General ---
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 Wound has been bleeding. The injury occurred approximately 2 hours ago and patient drove from [place] to [place] to come to the ER. Denies sensory loss. Patient is able to ambulate and bear weight without any issues. Patient's tetanus is up-to-date within the past 5 years. Allergies and Home Medications Allergies Coded Allergies: latex (Verified Allergy, Unknown, 04/21/22) Patient Home Medication List Home Medication List Reviewed: Yes Cetirizine HCl (Cetirizine HCl) 10 Mg Tablet, 10 MG PO DAILY, (Reported) Entered as Reported by: COLLEEN GIORDANO on 04/23/22 0902 Ferrous Sulfate (Ferrous Sulfate) 325 Mg (65 Mg Iron) Tablet, 325 MG PO DAILY Prescribed by: ENID VELEZ on 04/24/22 1433 Pantoprazole Sodium (Pantoprazole Sodium) 40 Mg Tablet.dr, 40 MG PO DAILY Prescribed by: ENID VELEZ on 04/24/22 1433 Review of Systems Review of Systems Constitutional: no symptoms reported EENTM: no symptoms reported Respiratory: no symptoms reported Cardiovascular: no symptoms reported Gastrointestinal: no symptoms reported Genitourinary: no symptoms reported Musculoskeletal: no symptoms reported Skin: see HPI, other (Laceration) Psychiatric/Neurological: No Symptoms Reported Endocrine: No Symptoms Reported Hematologic/Lymphatic: No Symptoms Reported Past Pxjekhe-Fsttws-Nfeqoy Hx Past Medical History Surgery/Hospitalization HX: NONE Family Medical History No Pertinent Family Hx Physical Exam Vital Signs Vital Signs - First Documented 01/13/23 13:10 Temp 35.5 Pulse 76 Resp 16 B/P (MAP) 141/85 (103) Pulse Ox 99 O2 Delivery Room Air Capillary Refill : General Appearance: WD/WN, no apparent distress HEENT: PERRL/EOMI Neck: full range of motion Extremities: normal range of motion (Left knee), non-tender (Knee joint is nontender. Laceration area is tender), no pedal edema Neurologic/Psychiatric: alert, oriented x 3 Skin: other (Medial side of left knee shows a 5 cm laceration which extends into the dermal layer of skin, moderate bleeding. No foreign body seen in the wound. N/V bundle is intact. ROM is unrestricted. No tendon or bone injury.) Skin Problem Location: lower extremities Skin Problem Character: linear Procedures/Interventions Wound Location: Lower Extremities Other Wound Location Left medial side of knee Wound Length (cm): 5 Wound's Depth, Shape: superficial, linear Wound Explored: clean Irrigated w/ Saline (ccs): 100 Betadine Prep?: No Anesthesia: Lidocaine w/ Epi Volume Anesthetic (ccs): 10 Suture: Ethlion Suture Size: 4-0 Number of Sutures: 6 Sterile Dressing Applied?: Yes Progress 6 interrupted sutures Progress/Results/Core Measures Results/Orders My Orders Orders - CALE FLOWERS MD Lidocaine/Epi 2% 1:100,000 (Xylocaine/Ep (01/13/23 13:19) Vital Signs/I&O 01/13/23 13:10 Temp 35.5 Pulse 76 Resp 16 B/P (MAP) 141/85 (103) Pulse Ox 99 O2 Delivery Room Air Progress Progress Note : Progress Note 1. LACERATION LEFT KNEE: - Six interrupted sutures placed with local block using lido with epi. See procedure note -Tetanus up-to-date within the past 5 years - Keflex 500mg bid for 5 days - Follow-up in ER for suture removal in 10 days -Follow-up with PCP as needed -Wound care instructions given Departure Impression Primary Impression: Laceration of left knee without complication Qualified Codes: S81.012A - Laceration without foreign body, left knee, initial encounter Disposition: 01 HOME, SELF-CARE Condition: Improved Departure-Patient Inst. Referrals: DEB AKHTAR APRN (PCP) Primary Care Physician [facility] (Family) Primary Care Physician Patient Instructions: Laceration Repair With Stitches ED, Wound Care Add. Discharge Instructions: - Follow-up in ER for suture removal in 10 days -Keflex prescription 500 mg twice a day for 5 days -Follow-up with PCP as needed -Wound care instructions given Scripts Cephalexin (Cephalexin) 500 Mg Tablet 500 MG PO BID for 5 Days, #10 TAB Prov: CALE FLOWERS MD 01/13/23 CALE FLOWERS MD Jan 13, 2023 13:15
[2023-01-13] MEDS ORDERED: LIDOCAINE/EPI 2% 1:100,00 (XYLOCAINE) 20 ML VIAL ONE (13:19)
[2023-01-13 13:46] VITALS: BP 141/85
[2023-01-13] MEDS ORDERED: CEPH500T PO (13:47)
== END 2023-01-13 13:55 | disposition home or self-care (01) ==
LOC: EDUNIT# 13:03 → ER FS 13:04
DX: S81.012A Laceration without foreign body, left knee, initial encounter (principal); C16.9 Malignant neoplasm of stomach, unspecified; Z79.01 Long term (current) use of anticoagulants; Z91.040 Latex allergy status; X58.XXXA Exposure to other specified factors, initial encounter
CPT/HCPCS: 12001

== ENCOUNTER 2023-01-23 09:17 | Emergency (ER) | payer MEDICARE ==
[~2023-01-23 09:17] MED LIST changes: +CEPH500T PO
[2023-01-23 09:20] VITALS: BP 128/62
== END 2023-01-23 09:35 | disposition home or self-care (01) ==
LOC: EDUNIT# 09:17 → ER FS 09:18
DX: Z48.02 Encounter for removal of sutures (principal)